=== PATIENT | male | born 1995 | race Caucasian/White ===

== ENCOUNTER 2018-03-05 14:39 | Emergency (ER) | payer OTHER ==
[~2018-03-05] VITALS: Ht 170.2 cm; Wt 65.8 kg
[2018-03-05 14:45] VITALS: Ht 170.2 cm; Wt 65.8 kg
[2018-03-05 17:10] VITALS: BP 124/86
== END 2018-03-05 17:10 | disposition home or self-care (01) ==
LOC: ED 14:39
DX: M54.9 Dorsalgia, unspecified (principal); Z87.19 Personal history of other diseases of the digestive system
CPT/HCPCS: J1885; Q0092

== ENCOUNTER 2018-05-30 16:45 | Emergency (ER) | payer OTHER ==
[~2018-05-30] VITALS: Ht 167.6 cm; Wt 64.0 kg
[2018-05-30 16:54] VITALS: BP 138/79; Ht 167.6 cm; Wt 64.0 kg
== END 2018-05-30 17:45 | disposition home or self-care (01) ==
LOC: ED 16:45
DX: G44.209 Tension-type headache, unspecified, not intractable (principal); K76.0 Fatty (change of) liver, not elsewhere classified

== ENCOUNTER 2018-08-10 15:04 | Emergency (ER) | payer OTHER ==
[~2018-08-10] VITALS: Ht 170.2 cm; Wt 68.5 kg
[2018-08-10 15:09] VITALS: Ht 170.2 cm; Wt 68.5 kg
[2018-08-10 16:48] LABS: BASOPHIL % 0.3 % (0-2); PLATELET COUNT 305 x10^3mcL (130-400); RED CELL DISTRIBUTION WIDTH 13.2 % (11.5-14.5)
[2018-08-10 16:58] LABS: CALCIUM 8.6 mg/dL (8.5-10.1); CARBON DIOXIDE 29.4 mmol/L (21-32); CHLORIDE SERUM 103 mmol/L (98-107); CREATININE SERUM 0.9 mg/dL (0.7-1.3); GFR1 > 60 mL/min; GLUCOSE SERUM 81 mg/dL (74-106); POTASSIUM SERUM 3.9 mmol/L (3.5-5.1); SODIUM SERUM 139 mmol/L (136-145)
[2018-08-10 17:00] VITALS: BP 120/67
[2018-08-10 17:04] LABS: ALBUMIN 4.2 g/dL (3.4-5.0); ALKALINE PHOSPHATASE 60 U/L (46-116); ALT/SGPT 28 U/L (16-63); AST/SGOT 20 U/L (15-37); BILIRUBIN TOTAL 0.21 mg/dL (0.20-1.00); LIPASE 117 IU/L (73-393); TOTAL PROTEIN, SERUM 7.3 g/dL (6.4-8.2)
== END 2018-08-10 18:11 | disposition home or self-care (01) ==
LOC: ED 15:04
PROVIDERS: Emergency Medicine
DX: N34.2 Other urethritis (principal); R10.13 Epigastric pain; R10.11 Right upper quadrant pain; K76.0 Fatty (change of) liver, not elsewhere classified
CPT/HCPCS: 36415; 87491; 87591; J0696; Q0092

== ENCOUNTER 2019-09-17 06:52 | Emergency (ER) | payer OTHER ==
[~2019-09-17] VITALS: Ht 170.2 cm; Wt 63.5 kg
[2019-09-17 07:05] VITALS: BP 118/72; Ht 170.2 cm; Wt 63.5 kg
== END 2019-09-17 07:38 | disposition home or self-care (01) ==
LOC: ED 06:52
DX: R41.0 Disorientation, unspecified (principal); E78.00 Pure hypercholesterolemia, unspecified